=== PATIENT | male | born 1980 | race Caucasian/White ===

== ENCOUNTER 2020-09-19 14:56 | Inpatient (IN) | payer OTHER ==
[~2020-09-19] VITALS: Ht 177.8 cm; Wt 85.8 kg
[~2020-09-19 14:56] MED LIST: ROBAXIN-750750 MG PO; VISTARIL50 MG PO; Zofran4 MG PO
[2020-09-19 16:00] VITALS: BP 159/101
[2020-09-19 16:12] LABS: BASO # 0.1 10*3/uL (0.0-0.1); EOS % 0.3 % (1.0-4.0); HEMATOCRIT 38.1 % (42.0-52.0); LYMPH # 2.4 10*3/uL (1.3-4.4); LYMPH % 32.9 % (27.0-41.0); MEAN CELL VOLUME 86.4 fl (80.0-94.0); MEAN CORPUSCULAR HGB 29.9 pg (27.0-31.0); MEAN CORPUSCULAR HGB CONC 34.6 g/dl (33.0-37.0); MEAN PLATELET VOLUME 9.4 fl (9.6-12.3); MONO # 0.6 10*3/uL (0.1-1.0); MONO % 7.6 % (3.0-9.0); NEUT # 4.2 10*3/uL (2.3-7.9); NEUT % 57.8 % (47.0-73.0); PLATELET COUNT AUTOMATED 285 10*3/uL (130-400); RED BLOOD COUNT 4.41 10*6/uL (4.50-5.90); RED CELL DISTRI WIDTH 13.4 % (0-14.5); WHITE BLOOD COUNT 7.3 10*3/uL (4.8-10.8)
[2020-09-19 16:27] LABS: ALBUMIN 3.9 gm/dl (3.1-4.5); ALKALINE PHOSPHATASE 70 U/L (45-117); BUN 10 mg/dl (7-24); CHLORIDE 105 mmol/L (98-107); CREATININE 0.79 mg/dL (0.70-1.30); POTASSIUM 3.7 mmol/L (3.5-5.1); SGOT/AST 20 IU/L (3-35); SGPT/ALT 27 U/L (12-78); SODIUM 141 mmol/L (136-145); TOTAL PROTEIN 7.1 gm/dL (6.4-8.2)
[2020-09-19 17:17] LABS: BILIRUBIN Negative (Negative); BLOOD Negative (Negative); CLARITY Clear (Clear); COLOR Yellow (Yellow); GLUCOSE Negative (Negative); KETONE Negative (Negative); LEUKO ESTERASE Trace (Negative); NITRITE Negative (Negative); PH 5.5 (4.5-8.0); SPECIFIC GRAVITY <= 1.005 (1.001-1.030); UROBILINOGEN 0.2 E.U./dl (0.0-1.0)
[2020-09-19 17:25] LABS: URINE AMPHETAMINES < 1000 (1000ng/ml); URINE BARBITURATES < 200 (200ng/ml); URINE BENZODIAZEPINES < 200 (200ng/ml); URINE CANNABINOIDS (THC) > 50 (50ng/ml); URINE COCAINE < 300 (300ng/ml); URINE METHADONE < 300 (300ng/ml); URINE OPIATES < 300 (300ng/ml)
[2020-09-19 17:26] LABS: URINE PHENCYCLIDINE < 25 (25ng/ml)
[2020-09-19 20:00] VITALS: BP 152/90
[2020-09-20] VITALS: BP 146/92
[2020-09-20 08:00] VITALS: BP 152/86
[2020-09-20 12:00] VITALS: BP 152/75
[2020-09-20 16:00] VITALS: BP 155/69
[2020-09-20 20:00] VITALS: BP 158/97
[2020-09-21] VITALS: BP 131/78
[2020-09-21 08:00] VITALS: BP 134/87
[2020-09-21 12:00] VITALS: BP 130/85
[2020-09-21 16:00] VITALS: BP 127/81
[2020-09-21 20:00] VITALS: BP 148/98
[2020-09-22] VITALS: BP 136/79
[2020-09-22 08:00] VITALS: BP 114/76
== END 2020-09-22 14:10 | DRG 775 ==
LOC: 5E 14:56
PROVIDERS: Student in an Organized Health Care Education/Training Program; ADMIT Internal Medicine; ATTEND Internal Medicine
DX: F10.239 Alcohol dependence with withdrawal, unspecified (principal); F41.9 Anxiety disorder, unspecified; F12.10 Cannabis abuse, uncomplicated; F17.210 Nicotine dependence, cigarettes, uncomplicated; D64.9 Anemia, unspecified; R00.1 Bradycardia, unspecified; E66.3 Overweight; Z71.6 Tobacco abuse counseling; Z89.022 Acquired absence of left finger(s); Z20.822 Contact with and (suspected) exposure to COVID-19; Z68.27 Body mass index [BMI] 27.0-27.9, adult